=== PATIENT | male | born 2000 | race African-American/Black ===

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

== ENCOUNTER 2019-05-28 12:12 | Emergency (ER) | payer SELFPAY ==
[~2019-05-28] VITALS: Ht 185.4 cm; Wt 70.3 kg
[~2019-05-28 12:12] MED LIST changes: +PROAIR HFA8.5 GM INH
[2019-05-28] MEDS ORDERED: NORCO 10-325 T1 EACH PO (13:56)
== END 2019-05-28 14:15 | disposition home or self-care (01) ==
LOC: ED 12:12
DX: S62.002A Unspecified fracture of navicular [scaphoid] bone of left wrist, initial encounter for closed fracture (principal); J45.909 Unspecified asthma, uncomplicated; Z79.899 Other long term (current) drug therapy; V86.56XA Driver of dirt bike or motor/cross bike injured in nontraffic accident, initial encounter; Y93.89 Activity, other specified; Y92.89 Other specified places as the place of occurrence of the external cause; Y99.8 Other external cause status

== ENCOUNTER 2020-10-02 22:45 | Emergency (ER) | payer OTHER ==
[~2020-10-02 22:45] MED LIST changes: +NORCO 10-325 T1 EACH PO
== END 2020-10-02 23:47 | disposition left against medical advice (07) ==
LOC: ED 22:45
DX: R50.9 Fever, unspecified (principal); R07.9 Chest pain, unspecified; Z53.21 Procedure and treatment not carried out due to patient leaving prior to being seen by health care provider

== ENCOUNTER 2020-10-03 14:08 | Emergency (ER) | payer OTHER ==
[~2020-10-03] VITALS: Wt 70.3 kg
== END 2020-10-03 15:10 | disposition left against medical advice (07) ==
LOC: ED 14:08
DX: J45.909 Unspecified asthma, uncomplicated (principal); Z20.822 Contact with and (suspected) exposure to COVID-19; R07.89 Other chest pain; Z79.899 Other long term (current) drug therapy

== ENCOUNTER 2021-04-22 18:19 | Emergency (ER) | payer OTHER ==
[2021-04-22] MEDS ORDERED: VOLTAREN ARTHRI20 GM T (18:39)
== END 2021-04-22 19:08 | disposition home or self-care (01) ==
LOC: ED 18:19
DX: S13.4XXA Sprain of ligaments of cervical spine, initial encounter (principal); M25.511 Pain in right shoulder; M25.512 Pain in left shoulder; V89.2XXA Person injured in unspecified motor-vehicle accident, traffic, initial encounter; Y93.89 Activity, other specified; Y92.89 Other specified places as the place of occurrence of the external cause; Y99.8 Other external cause status